=== PATIENT | male | born 1965 | race Two or more races ===

== ENCOUNTER 2023-05-13 12:40 | Inpatient (IN) | payer MEDICAID, MEDICARE ==
[~2023-05-13] VITALS: Ht 175.3 cm; Wt 84.4 kg
[2023-05-13] MEDS ORDERED: ONDANSETRON HCL/PF 4 MG/2 ML VIAL ONE (13:08)
[2023-05-13] MEDS ORDERED: FAMOTIDINE/PF INJ 20 MG/2 ML VIAL IV ONE ×2 (13:09→13:30)
[2023-05-13] MEDS ORDERED: IV NS 0.9% 1,000 ML BAG IV ONE (13:30)
[2023-05-13] MEDS ORDERED: ONDANSETRON HCL/PF 4 MG/2 ML VIAL IVP ONE (13:30)
[2023-05-13 13:45] LABS: BASOPHILS # (AUTO) 0.1 K/uL (0.0-0.2); BASOPHILS % (AUTO) 0.3 % (0.0-2.0); EOSINOPHILS % (AUTO) 0.1 % (0.0-6.0); HEMATOCRIT 44 % (39-51); HEMOGLOBIN 14.2 g/dL (13.5-17.5); LYMPHOCYTES % (AUTO) 4.8 % (20.0-44.0); MEAN CORPUSCULAR HEMOGLOBIN 30 PG (26.0-33.0); MEAN CORPUSCULAR HGB CONC 32 g/dl (31.0-36.0); MEAN CORPUSCULAR VOLUME 93 fL (80-96); MONOCYTES # (AUTO) 1.8 K/uL (0.1-1.30); MONOCYTES % (AUTO) 8.3 % (2.0-12.0); NEUTROPHILS # (AUTO) 18.5 K/uL (1.8-8.9); NEUTROPHILS % (AUTO) 86.5 % (43.0-81.0); PLATELET COUNT (AUTO) 309 K/uL (150-450); RED BLOOD CELL COUNT(AUTO) 4.74 MIL/uL (4.5-6.0); RED CELL DISTRIBUTION WIDTH 14.5 % (11.5-15.0); WHITE BLOOD COUNT (AUTO) 21.4 K/uL (4.3-11.0)
[2023-05-13 14:00] VITALS: O2SAT 97
[2023-05-13 14:03] LABS: CALCIUM, SERUM 9.3 mg/dL (8.5-10.1); CARBON DIOXIDE 26 mmol/L (21-32); CHLORIDE 98 mmol/L (98-107); CREATININE 0.9 mg/dL (0.6-1.3); GLUCOSE 95 mg/dL (74-106); POTASSIUM 4.5 mmol/L (3.5-5.1); SODIUM SERUM 133 mmol/L (136-145); UREA NITROGEN, BLOOD 12 mg/dL (7-18)
[2023-05-13 14:10] LABS: ALANINE AMINOTRANSFERASE 110 U/L (12-78); ALBUMIN 2.7 g/dL (3.4-5.0); ALKALINE PHOSPHATASE 182 U/L (46-116); ASPARTATE AMINOTRANSFERASE 38 U/L (15-37); BILIRUBIN,DIRECT 0.2 mg/dL (0.0-0.2); BILIRUBIN,TOTAL 0.8 mg/dL (0.2-1.0); LIPASE 98 U/L (73-393); TOTAL PROTEIN, SERUM 7.7 g/dL (6.4-8.2)
[2023-05-13 14:26] LABS: INR 1.14 (0.91-1.10); PARTIAL THROMBOPLASTIN TIME 25.1 SEC (24.3-34.3); PROTHROMBIN TIME 11.9 SECS (9.2-11.1)
[2023-05-13] MEDS ORDERED: oxyCODONE/APAP (5/325 MG) 1 UDTAB TABLET PO ONE (14:30)
[2023-05-13] MEDS ORDERED: oxyCODONE/APAP (5/325 MG) 1 UDTAB TABLET ONE (14:36)
[2023-05-13 16:02] LABS: APPEARANCE,URINE CLEAR (CLEAR); BILIRUBIN,URINE NEGATIVE (NEGATIVE); BLOOD, URINE TRACE-INTA Ery/uL (NEGATIVE); COLOR,URINE YELLOW (YELLOW); KETONES,URINE 2+ mg/dL (NEGATIVE); LEUKOCYTE ESTERASE ,URINE NEGATIVE (NEGATIVE); NITRITE, URINE NEGATIVE (NEGATIVE); PROTEIN,URINE 1+ mg/dl (NEGATIVE); UGLUCOSE NEGATIVE (NEGATIVE)
[2023-05-13 16:11] LABS: ADD URINE CULTURE NO; BACTERIA,URINE None seen /HPF (None Seen); WBC,URINE 0-2 /HPF (0-3)
[2023-05-13 16:12] LABS: MUCUS,URINE Few /LPF (None Seen)
[2023-05-13 16:29] LABS: CSF GLUCOSE 51 mg/dL (40-70); CSF PROTEIN 90.95 mg/dL (15-45)
[2023-05-13] MEDS ORDERED: MAG HYDROX/AL HYDROX/SIMETH 30 ML UDC PO PRN (16:30)
[2023-05-13] MEDS ORDERED: ZOLPIDEM TARTRATE 5 MG TABLET PO PRN (16:30)
[2023-05-13] MEDS ORDERED: MAGNESIUM HYDROXIDE 30 ML UDC PO PRN (16:30)
[2023-05-13] MEDS ORDERED: ONDANSETRON HCL/PF 4 MG/2 ML VIAL IVP PRN (16:30)
[2023-05-13] MEDS ORDERED: Z GUARD REMEDY 4 OZ OINT TP PRN (16:30)
[2023-05-13] MEDS ORDERED: FLUCONAZOLE (100 MG) 100 MG TABLET PO ONE (16:30)
[2023-05-13 16:47] LABS: CSF APPEARANCE HAZY (CLEAR); CSF COLOR PINK (COLORLESS)
[2023-05-13 16:49] LABS: CSF WHITE BLOOD CELL COUNT 10 /cumm (0-5)
[2023-05-13 17:33] LABS: CSF WHITE BLOOD CELL COUNT 12 /cumm (0-5)
[2023-05-13] MEDS: IV D5/0.45 NACL 1,000 ML IV PRN (17:48)
[2023-05-13] MEDS: ACETAMINOPHEN 325 MG TABLET PO PRN (17:51)
[2023-05-13] MEDS: NYSTATIN (PYXIS) 500,000 UNIT/5 ML ORAL.SUSP PO SCH (17:51)
[2023-05-13] MEDS: PIPERACILLIN /TAZOBACTAM 3.375 G in IV D5W 50 ML IV SCH ×2 (18:29→23:07)
[2023-05-13 21:07] VITALS: BP 143/84; TEMP 101.2; O2SAT 94
[2023-05-13] MEDS: HYDROCODONE/APAP 5/325MG TABLET PO PRN (23:06)
[2023-05-14 00:58] VITALS: BP 136/82; TEMP 98.8; O2SAT 92
[2023-05-14] MEDS: ACETAMINOPHEN 325 MG TABLET PO PRN ×2 (03:33→20:44)
[2023-05-14 04:06] LABS: *BASOS 0 % (Not Estab.); *BASOS, ABSOLUTE 0.1 x10E3/uL (0.0-0.2); *EOS 0 % (Not Estab.); *HCT 43.2 % (37.5-51.0); *HGB 14.5 g/dL (13.0-17.7); *IMMATURE GRANULOCYTES 2 % (Not Estab.); *IMMATURE GRANULOCYTES(ABS) 0.3 x10E3/uL (0.0-0.1); *LYMPHOCYTES 5 % (Not Estab.); *LYMPHS, ABSOLUTE 1.1 x10E3/uL (0.7-3.1); *MCH 30.5 pg (26.6-33.0); *MCHC 33.6 g/dL (31.5-35.7); *MCV 91 fL (79-97); *MONOCYTES 8 % (Not Estab.); *MONOS, ABSOLUTE 1.6 x10E3/uL (0.1-0.9); *NEUTROPHILS 85 % (Not Estab.); *NEUTROPHILS, ABSOLUTE 17.4 x10E3/uL (1.4-7.0); *PLT 287 x10E3/uL (150-450); *RBC 4.76 x10E6/uL (4.14-5.80); *WBC 20.5 x10E3/uL (3.4-10.8)
[2023-05-14 04:21] VITALS: BP 143/84; TEMP 100.4; O2SAT 94
[2023-05-14] MEDS: PIPERACILLIN /TAZOBACTAM 3.375 G in IV D5W 50 ML IV SCH ×4 (05:08→23:49)
[2023-05-14] MEDS: HYDROCODONE/APAP 5/325MG TABLET PO PRN ×3 (05:31→20:45)
[2023-05-14 06:40] LABS: BASOPHILS % (AUTO) 0.1 % (0.0-2.0); HEMATOCRIT 40 % (39-51); LYMPHOCYTES # (AUTO) 1.4 K/uL (0.8-4.8); LYMPHOCYTES % (AUTO) 6.4 % (20.0-44.0); MEAN CORPUSCULAR HEMOGLOBIN 30 PG (26.0-33.0); MEAN CORPUSCULAR HGB CONC 32 g/dl (31.0-36.0); MEAN CORPUSCULAR VOLUME 92 fL (80-96); MONOCYTES # (AUTO) 2.4 K/uL (0.1-1.30); MONOCYTES % (AUTO) 10.9 % (2.0-12.0); NEUTROPHILS # (AUTO) 18.4 K/uL (1.8-8.9); NEUTROPHILS % (AUTO) 82.6 % (43.0-81.0); PLATELET COUNT (AUTO) 288 K/uL (150-450); RED BLOOD CELL COUNT(AUTO) 4.37 MIL/uL (4.5-6.0); RED CELL DISTRIBUTION WIDTH 14.4 % (11.5-15.0); WHITE BLOOD COUNT (AUTO) 22.3 K/uL (4.3-11.0)
[2023-05-14 06:57] LABS: ALBUMIN 2.3 g/dL (3.4-5.0); CALCIUM, SERUM 8.6 mg/dL (8.5-10.1); CREATININE 0.9 mg/dL (0.6-1.3); MAGNESIUM 2.3 mg/dL (1.8-2.4); PHOSPHORUS 3.3 mg/dL (2.5-4.9); TOTAL PROTEIN, SERUM 6.9 g/dL (6.4-8.2)
[2023-05-14 08:36] VITALS: BP 152/87; TEMP 98.7; O2SAT 100
[2023-05-14] MEDS: NYSTATIN (PYXIS) 500,000 UNIT/5 ML ORAL.SUSP PO SCH ×3 (09:20→17:10)
[2023-05-14] MEDS: IV D5/0.45 NACL 1,000 ML IV PRN (09:20)
[2023-05-14 11:07] LABS: *% CD 4 POS. LYMPH 38.6 % (30.8-58.5); *% CD 8 POS. LYMPH 19.6 % (12.0-35.5); *ABSOLUTE CD 4 HELPER 425 /uL (359-1519); *ABSOLUTE CD 8 SUPPRESSOR 216 /uL (109-897); *CD4/CD8 RATIO 1.97 (0.92-3.72)
[2023-05-14 16:45] VITALS: BP 147/90; TEMP 99.8; O2SAT 98
[2023-05-14] MEDS ORDERED: GADOTERATE MEGLUMINE 10 MMOL/20 ML VIAL IV ONE (17:50)
[2023-05-14] MEDS: FLUCONAZOLE (100 MG) 100 MG TABLET PO SCH (18:39)
[2023-05-14 19:00] VITALS: BP 144/85; TEMP 102.9; O2SAT 93
[2023-05-14] MEDS ORDERED: VANCOMYCIN 1.5 GM in IV D5W 500ml IV ONE (19:00)
[2023-05-14 21:00] VITALS: TEMP 102.1
[2023-05-14] MEDS ORDERED: DEXTROSE 50%-WATER 50 ML DISP.SYRIN IV PRN (22:00)
[2023-05-14] MEDS: BLOOD SUGAR DIAGNOSTIC 1 EACH STRIP IN SCH (22:59)
[2023-05-14] MEDS: INSULIN REGULAR, HUMAN 100 UNIT/ML 3 ML VIAL SQ PRN (23:00)
[2023-05-15] VITALS: BP 138/81; TEMP 98.9; O2SAT 95
[2023-05-15] MEDS: PIPERACILLIN /TAZOBACTAM 3.375 G in IV D5W 50 ML IV SCH ×4 (05:03→23:29)
[2023-05-15] MEDS: IV D5/0.45 NACL 1,000 ML IV PRN (05:03)
[2023-05-15 05:10] VITALS: BP 143/90; TEMP 100.6; O2SAT 94
[2023-05-15] MEDS: VANCOMYCIN 1.25 GM in IV D5W 250 ML IV SCH ×2 (06:00→19:04)
[2023-05-15 06:13] LABS: BASOPHILS % (AUTO) 0.1 % (0.0-2.0); EOSINOPHILS % (AUTO) 0.1 % (0.0-6.0); HEMATOCRIT 42 % (39-51); LYMPHOCYTES # (AUTO) 1.8 K/uL (0.8-4.8); LYMPHOCYTES % (AUTO) 8.4 % (20.0-44.0); MEAN CORPUSCULAR HEMOGLOBIN 30 PG (26.0-33.0); MEAN CORPUSCULAR HGB CONC 33 g/dl (31.0-36.0); MEAN CORPUSCULAR VOLUME 92 fL (80-96); MONOCYTES # (AUTO) 2.1 K/uL (0.1-1.30); MONOCYTES % (AUTO) 9.7 % (2.0-12.0); NEUTROPHILS # (AUTO) 17.3 K/uL (1.8-8.9); NEUTROPHILS % (AUTO) 81.7 % (43.0-81.0); PLATELET COUNT (AUTO) 336 K/uL (150-450); RED BLOOD CELL COUNT(AUTO) 4.61 MIL/uL (4.5-6.0); RED CELL DISTRIBUTION WIDTH 14.1 % (11.5-15.0); WHITE BLOOD COUNT (AUTO) 21.2 K/uL (4.3-11.0)
[2023-05-15] MEDS: HYDROCODONE/APAP 5/325MG TABLET PO PRN ×2 (06:26→12:52)
[2023-05-15] MEDS: BLOOD SUGAR DIAGNOSTIC 1 EACH STRIP IN SCH ×4 (06:51→22:33)
[2023-05-15] MEDS: INSULIN REGULAR, HUMAN 100 UNIT/ML 3 ML VIAL SQ PRN ×2 (06:51→22:36)
[2023-05-15 08:00] VITALS: BP 130/79; TEMP 98.5; O2SAT 97
[2023-05-15] MEDS: NYSTATIN (PYXIS) 500,000 UNIT/5 ML ORAL.SUSP PO SCH ×3 (08:57→18:28)
[2023-05-15] MEDS: FLUCONAZOLE (100 MG) 100 MG TABLET PO SCH (08:57)
[2023-05-15] MEDS ORDERED: [UNRECOGNIZED DRUG - CODE] PO (10:47)
[2023-05-15] MEDS ORDERED: CETI-90 PO (10:47)
[2023-05-15] MEDS ORDERED: FOLIC ACID PO (10:47)
[2023-05-15] MEDS ORDERED: DAILYVITE PO (10:47)
[2023-05-15] MEDS ORDERED: LISI10TA29 PO (10:47)
[2023-05-15] MEDS ORDERED: BICT1TAB PO (10:47)
[2023-05-15] MEDS ORDERED: IBUP-1957 PO (10:47)
[2023-05-15] MEDS ORDERED: FLUO40CA49 PO (10:47)
[2023-05-15] MEDS ORDERED: FINA5TAB11 PO (10:47)
[2023-05-15] MEDS ORDERED: CHOL200059 PO (10:47)
[2023-05-15] MEDS ORDERED: TEST200V3 IM (10:47)
[2023-05-15] MEDS ORDERED: LOPE2CAP PO (10:47)
[2023-05-15] MEDS ORDERED: ALFU10TA10 PO (10:47)
[2023-05-15] MEDS ORDERED: FLUT16SP BNOSTRILS (10:47)
[2023-05-15] MEDS ORDERED: ATOR20TA PO (10:47)
[2023-05-15] MEDS ORDERED: METF-881 PO (10:47)
[2023-05-15] MEDS ORDERED: KRIL500C PO (10:47)
[2023-05-15] MEDS ORDERED: SILD20TA2 PO (10:47)
[2023-05-15] MEDS ORDERED: AMLO-213 PO (10:47)
[2023-05-15] MEDS ORDERED: GABA600T12 PO (10:47)
[2023-05-15 12:00] VITALS: BP 137/75; TEMP 99.9; O2SAT 98
[2023-05-15 15:06] LABS: *CRYPTOCOCCUS AG, CSF Negative (Negative)
[2023-05-15 16:00] VITALS: BP 142/85; TEMP 100.2; O2SAT 97
[2023-05-15 20:00] VITALS: BP 160/80; TEMP 97.9; O2SAT 97
[2023-05-15] MEDS: NORTRIPTYLINE HCL 25 MG CAPSULE PO SCH (21:02)
[2023-05-15] MEDS ORDERED: NORTRIPTYLINE HCL 25 MG CAPSULE PO SCH (22:00)
[2023-05-16] VITALS: BP 147/87; TEMP 99.4; O2SAT 94
[2023-05-16] MEDS: HYDROCODONE/APAP 5/325MG TABLET PO PRN ×3 (04:07→15:08)
[2023-05-16] MEDS: IV D5/0.45 NACL 1,000 ML IV PRN ×2 (04:08→17:55)
[2023-05-16 05:00] VITALS: BP 147/92; TEMP 99.1; O2SAT 97
[2023-05-16] MEDS: PIPERACILLIN /TAZOBACTAM 3.375 G in IV D5W 50 ML IV SCH ×4 (05:21→23:21)
[2023-05-16 06:18] LABS: BASOPHILS # (AUTO) 0.1 K/uL (0.0-0.2); BASOPHILS % (AUTO) 0.5 % (0.0-2.0); EOSINOPHILS # (AUTO) 0.1 K/uL (0.0-0.7); EOSINOPHILS % (AUTO) 0.7 % (0.0-6.0); HEMATOCRIT 44 % (39-51); HEMOGLOBIN 14.6 g/dL (13.5-17.5); LYMPHOCYTES # (AUTO) 1.8 K/uL (0.8-4.8); LYMPHOCYTES % (AUTO) 9.7 % (20.0-44.0); MEAN CORPUSCULAR HEMOGLOBIN 31 PG (26.0-33.0); MEAN CORPUSCULAR HGB CONC 33 g/dl (31.0-36.0); MEAN CORPUSCULAR VOLUME 92 fL (80-96); MONOCYTES # (AUTO) 1.4 K/uL (0.1-1.30); MONOCYTES % (AUTO) 7.7 % (2.0-12.0); NEUTROPHILS # (AUTO) 14.9 K/uL (1.8-8.9); NEUTROPHILS % (AUTO) 81.4 % (43.0-81.0); PLATELET COUNT (AUTO) 377 K/uL (150-450); RED BLOOD CELL COUNT(AUTO) 4.76 MIL/uL (4.5-6.0); RED CELL DISTRIBUTION WIDTH 14.1 % (11.5-15.0); WHITE BLOOD COUNT (AUTO) 18.3 K/uL (4.3-11.0)
[2023-05-16] MEDS: INSULIN REGULAR, HUMAN 100 UNIT/ML 3 ML VIAL SQ PRN ×2 (06:36→11:36)
[2023-05-16] MEDS: BLOOD SUGAR DIAGNOSTIC 1 EACH STRIP IN SCH ×4 (06:36→21:57)
[2023-05-16 06:46] LABS: CALCIUM, SERUM 9.1 mg/dL (8.5-10.1); CREATININE 0.9 mg/dL (0.6-1.3); POTASSIUM 3.7 mmol/L (3.5-5.1)
[2023-05-16] MEDS: VANCOMYCIN 1.25 GM in IV D5W 250 ML IV SCH (07:54)
[2023-05-16 08:00] VITALS: BP 139/87; TEMP 98.2; O2SAT 97
[2023-05-16] MEDS: NYSTATIN (PYXIS) 500,000 UNIT/5 ML ORAL.SUSP PO SCH ×3 (08:12→16:04)
[2023-05-16] MEDS: FLUCONAZOLE (100 MG) 100 MG TABLET PO SCH (08:12)
[2023-05-16 12:00] VITALS: BP 131/81; TEMP 98.4; O2SAT 98
[2023-05-16] MEDS: VANCOMYCIN 1 GM in IV D5W 250ml IV SCH ×2 (15:01→22:07)
[2023-05-16 16:00] VITALS: BP 129/84; TEMP 98.2; O2SAT 98
[2023-05-16] MEDS: NORTRIPTYLINE HCL 25 MG CAPSULE PO SCH (20:17)
[2023-05-16 21:02] VITALS: BP 140/85; TEMP 98.3; O2SAT 97
[2023-05-17] MEDS: PIPERACILLIN /TAZOBACTAM 3.375 G in IV D5W 50 ML IV SCH ×3 (05:59→17:13)
[2023-05-17 06:02] LABS: CALCIUM, SERUM 9.2 mg/dL (8.5-10.1); CREATININE 1.1 mg/dL (0.6-1.3); POTASSIUM 4.2 mmol/L (3.5-5.1)
[2023-05-17] MEDS: VANCOMYCIN 1 GM in IV D5W 250ml IV SCH ×3 (06:49→23:03)
[2023-05-17] MEDS: BLOOD SUGAR DIAGNOSTIC 1 EACH STRIP IN SCH ×4 (07:02→21:01)
[2023-05-17 08:00] VITALS: BP 130/82; TEMP 99.1; O2SAT 97
[2023-05-17] MEDS: FLUCONAZOLE (100 MG) 100 MG TABLET PO SCH (09:37)
[2023-05-17] MEDS: NYSTATIN (PYXIS) 500,000 UNIT/5 ML ORAL.SUSP PO SCH ×3 (09:37→16:40)
[2023-05-17] MEDS: IV D5/0.45 NACL 1,000 ML IV PRN (10:18)
[2023-05-17] MEDS: INSULIN REGULAR, HUMAN 100 UNIT/ML 3 ML VIAL SQ PRN ×3 (11:49→21:06)
[2023-05-17] MEDS: HYDROCODONE/APAP 5/325MG TABLET PO PRN ×2 (12:13→21:11)
[2023-05-17 16:00] VITALS: BP 141/86; TEMP 98.8; O2SAT 98
[2023-05-17 20:00] VITALS: BP 134/78; TEMP 98.3; O2SAT 96
[2023-05-17] MEDS: NORTRIPTYLINE HCL 25 MG CAPSULE PO SCH (20:54)
[2023-05-18] MEDS: PIPERACILLIN /TAZOBACTAM 3.375 G in IV D5W 50 ML IV SCH ×4 (00:06→17:31)
[2023-05-18] MEDS: IV D5/0.45 NACL 1,000 ML IV PRN ×2 (05:45→23:42)
[2023-05-18] MEDS: INSULIN REGULAR, HUMAN 100 UNIT/ML 3 ML VIAL SQ PRN ×3 (05:50→22:20)
[2023-05-18] MEDS: BLOOD SUGAR DIAGNOSTIC 1 EACH STRIP IN SCH ×4 (05:51→22:17)
[2023-05-18] MEDS: VANCOMYCIN 1 GM in IV D5W 250ml IV SCH ×3 (06:04→23:32)
[2023-05-18 06:05] LABS: EOSINOPHILS # (AUTO) 0.2 K/uL (0.0-0.7); EOSINOPHILS % (AUTO) 1.5 % (0.0-6.0); HEMATOCRIT 47 % (39-51); HEMOGLOBIN 15.4 g/dL (13.5-17.5); LYMPHOCYTES # (AUTO) 4.3 K/uL (0.8-4.8); LYMPHOCYTES % (AUTO) 31.3 % (20.0-44.0); MEAN CORPUSCULAR HEMOGLOBIN 30 PG (26.0-33.0); MEAN CORPUSCULAR HGB CONC 33 g/dl (31.0-36.0); MEAN CORPUSCULAR VOLUME 93 fL (80-96); MONOCYTES # (AUTO) 5.5 K/uL (0.1-1.30); MONOCYTES % (AUTO) 40.3 % (2.0-12.0); NEUTROPHILS # (AUTO) 3.7 K/uL (1.8-8.9); NEUTROPHILS % (AUTO) 26.9 % (43.0-81.0); PLATELET COUNT (AUTO) 443 K/uL (150-450); RED BLOOD CELL COUNT(AUTO) 5.11 MIL/uL (4.5-6.0); RED CELL DISTRIBUTION WIDTH 14.3 % (11.5-15.0); WHITE BLOOD COUNT (AUTO) 13.6 K/uL (4.3-11.0)
[2023-05-18 06:12] LABS: CALCIUM, SERUM 9.1 mg/dL (8.5-10.1); MAGNESIUM 2.5 mg/dL (1.8-2.4); PHOSPHORUS 2.6 mg/dL (2.5-4.9); POTASSIUM 4.3 mmol/L (3.5-5.1)
[2023-05-18 08:00] VITALS: BP 146/89; TEMP 99.9; O2SAT 97
[2023-05-18] MEDS: NYSTATIN (PYXIS) 500,000 UNIT/5 ML ORAL.SUSP PO SCH ×3 (08:27→16:54)
[2023-05-18] MEDS: FLUCONAZOLE (100 MG) 100 MG TABLET PO SCH (08:28)
[2023-05-18 08:49] LABS: ANISOCYTOSIS 1+; BASOPHILS % (MANUAL) 0 % (0.0-2.0); EOSINOPHILS % (MANUAL) 0 % (0-4); LYMPHOCYTES % (MANUAL) 23 % (16-48); MONOCYTES % (MANUAL) 28 % (0-11.0); NEUTROPHILS % (MANUAL) 49 (42-76); PLATELET ESTIMATE ADEQUATE
[2023-05-18 16:00] VITALS: BP 138/87; TEMP 100; O2SAT 96
[2023-05-18 20:00] VITALS: BP 130/82; TEMP 98.5; O2SAT 96
[2023-05-18] MEDS ORDERED: NORTRIPTYLINE HCL 25 MG CAPSULE PO SCH (22:00)
[2023-05-19] MEDS: PIPERACILLIN /TAZOBACTAM 3.375 G in IV D5W 50 ML IV SCH ×3 (00:58→11:02)
[2023-05-19 06:02] LABS: BASOPHILS # (AUTO) 0.1 K/uL (0.0-0.2); BASOPHILS % (AUTO) 0.8 % (0.0-2.0); EOSINOPHILS # (AUTO) 0.2 K/uL (0.0-0.7); EOSINOPHILS % (AUTO) 1.6 % (0.0-6.0); HEMATOCRIT 48 % (39-51); HEMOGLOBIN 15.9 g/dL (13.5-17.5); LYMPHOCYTES # (AUTO) 2.1 K/uL (0.8-4.8); LYMPHOCYTES % (AUTO) 16.7 % (20.0-44.0); MEAN CORPUSCULAR HEMOGLOBIN 31 PG (26.0-33.0); MEAN CORPUSCULAR HGB CONC 33 g/dl (31.0-36.0); MEAN CORPUSCULAR VOLUME 93 fL (80-96); MONOCYTES # (AUTO) 1.3 K/uL (0.1-1.30); MONOCYTES % (AUTO) 10.3 % (2.0-12.0); NEUTROPHILS # (AUTO) 8.9 K/uL (1.8-8.9); NEUTROPHILS % (AUTO) 70.6 % (43.0-81.0); PLATELET COUNT (AUTO) 469 K/uL (150-450); RED BLOOD CELL COUNT(AUTO) 5.18 MIL/uL (4.5-6.0); RED CELL DISTRIBUTION WIDTH 14.1 % (11.5-15.0); WHITE BLOOD COUNT (AUTO) 12.6 K/uL (4.3-11.0)
[2023-05-19 06:40] LABS: CALCIUM, SERUM 9.5 mg/dL (8.5-10.1); CREATININE 1.2 mg/dL (0.6-1.3); POTASSIUM 4.3 mmol/L (3.5-5.1)
[2023-05-19] MEDS: VANCOMYCIN 1 GM in IV D5W 250ml IV SCH (06:44)
[2023-05-19] MEDS: INSULIN REGULAR, HUMAN 100 UNIT/ML 3 ML VIAL SQ PRN ×2 (07:00→11:20)
[2023-05-19] MEDS: BLOOD SUGAR DIAGNOSTIC 1 EACH STRIP IN SCH ×2 (07:00→11:19)
[2023-05-19] MEDS ORDERED: CEFT1FRO2 IV (08:21)
[2023-05-19] MEDS: FLUCONAZOLE (100 MG) 100 MG TABLET PO SCH (08:29)
[2023-05-19] MEDS: NYSTATIN (PYXIS) 500,000 UNIT/5 ML ORAL.SUSP PO SCH ×2 (08:29→12:49)
[2023-05-19 08:50] VITALS: BP 142/93; TEMP 98.9; O2SAT 97
[2023-05-19] MEDS ORDERED: CEFTRIAXONE 1 G in IV D5W 50 ML IV SCH (13:00)
== END 2023-05-19 15:15 | disposition home health service (06) | DRG 892 ==
LOC: ER 12:48 → MED 17:28 → TELE 20:46 → MED 05-16 09:43
PROVIDERS: ADMIT Internal Medicine; ATTEND Internal Medicine
PROC: 05HB33Z Insertion of Infusion Device into Right Basilic Vein, Percutaneous Approach (ICD-10-PCS; principal; 2023-05-19)
DX: A40.9 Streptococcal sepsis, unspecified (principal); B20 Human immunodeficiency virus [HIV] disease; B37.0 Candidal stomatitis; E87.1 Hypo-osmolality and hyponatremia; E88.09 Other disorders of plasma-protein metabolism, not elsewhere classified; E11.9 Type 2 diabetes mellitus without complications; J01.90 Acute sinusitis, unspecified; I10 Essential (primary) hypertension; Z20.822 Contact with and (suspected) exposure to COVID-19; R74.01 Elevation of levels of liver transaminase levels; Z86.19 Personal history of other infectious and parasitic diseases; Z79.899 Other long term (current) drug therapy; Z79.84 Long term (current) use of oral hypoglycemic drugs; E78.00 Pure hypercholesterolemia, unspecified; G47.00 Insomnia, unspecified; M50.322 Other cervical disc degeneration at C5-C6 level; M50.323 Other cervical disc degeneration at C6-C7 level
CPT/HCPCS: 36410; 36415; 62270; 70450-TC; 70553-TC; 71045-TC; 72052-TC; 80048-TC; 80053-TC; 80076-TC; 80202-TC; 81001; 82962-TC; 83615-TC; 83690-TC; 83735-TC; 84100-TC; 84484-TC; 85025-TC; 85730-TC; 86360; 87040-TC; 87081-TC; 87086-TC; 87899; 89051-TC; 97112-TC; 97116-TC; 97530-TC; A4223; A9575; C9803; G0378; J0696; J1815; J2405; J2543; J3370; J3490; J7040; J7042; J7060